=== PATIENT | female | born 1940 | race Caucasian/White ===

== ENCOUNTER 2020-01-20 13:31 | Outpatient (CLI) | payer MEDICARE, SELFPAY ==
[2020-01-20 13:51] LABS: Basophils Absolute Auto 0.1 K/mm3 (0.0-0.1); Basophils Percent Auto 1.4 % (0.2-1.2); Eosinophils Absolute Auto 0.1 K/mm3 (0-0.3); Eosinophils Percent Auto 3.2 % (0-4.4); Hemoglobin 12.6 g/dL (12.0-15.0); Immature Granulocyte Absolute 0.01 K/mm3 (0.00-0.031); Immature Granulocyte Percent A 0.2 % (0-0.5); Lymphocytes Absolute Auto 1.12 K/mm3 (0.9-3.2); Lymphocytes Percent Auto 25.3 % (18.3-44.2); Mean Corpuscular HGB Conc 31.5 g/dl (32-36); Mean Corpuscular Hemoglobin 30.7 pg (26-34); Mean Corpuscular Volume 97.3 fl (80-100); Mean Platelet Volume 9.2 fl (7.4-10.4); Monocytes Absolute Auto 0.4 K/mm3 (0.1-0.6); Monocytes Percent Auto 8.4 % (2.6-8.5); Neutrophils Absolute Auto 2.7 K/mm3 (1.3-6.7); Neutrophils Percent Auto 61.5 % (45.5-73.1); Platelet Count Result 187 k/mm3 (150-375); Red Blood Count 4.11 M/mm3 (4.2-5.4); Red Cell Distribution Width 12.2 % (11.5-14.5); White Blood Count 4.4 K/mm3 (4.5-10.0)
[2020-01-20 16:53] LABS: Alanine Aminotransferase 9 U/L (4-35); Albumin Level 4.1 g/dL (3.5-5.1); Alkaline Phosphatase 70 U/L (38-126); Aspartate Amino Transferase 24 U/L (14-36); Bilirubin,Total 0.3 mg/dL (0.2-1.3); Blood Urea Nitrogen 15 mg/dL (7-17); Calcium 9.3 mg/dL (8.4-10.2); Carbon Dioxide 30 mmol/L (22-30); Chloride 99 mmol/L (98-107); Estimated Glomerular Filt Rate 60; Glucose 124 mg/dL (65-105); Potassium 4.2 mmol/L (3.4-5.0); Sodium 140 mmol/L (137-145)
[2020-01-24 05:40] LABS: CA 27.29 42 U/mL (<38)
== END 2020-01-20 13:32 | disposition home or self-care (01) ==
LOC: ANHLAB 13:33
PROVIDERS: PCP Family Medicine; Visit Provider Internal Medicine Hematology & Oncology
DX: C50.412 Malignant neoplasm of upper-outer quadrant of left female breast (principal); Z17.0 Estrogen receptor positive status [ER+]
CPT/HCPCS: 36415; 80053; 85025; 86300

== ENCOUNTER 2020-02-03 14:14 | Outpatient (CLI) | payer MEDICARE, SELFPAY ==
--- NOTE | ~2020-02-03 | MM_ITS ---
EXAMINATION: MM screening piper BI w cathy HISTORY: Screening mammogram TECHNIQUE: Craniocaudal and mediolateral oblique 3-D tomosynthesis images were obtained and synthetic 2-D images were generated. CAD analysis was submitted and interpreted. COMPARISON: Comparison to multiple prior studies sequentially, with oldest reviewed study dated 12/2014. BREAST PARENCHYMAL COMPOSITION: The breasts are heterogeneously dense, which may obscure small masses . FINDINGS: There is no evidence of suspicious mass, calcification, or architectural distortion to sugg est malignancy in either breast. There has been no suspicious interval change. IMPRESSION: 1. No mammographic evidence of malignancy. 2. Recommend routine screening mammography in one year. BI-RADS Category 1: Negative Reviewed, dictated and finalized at location A.
== END 2020-02-03 14:15 | disposition home or self-care (01) ==
PROVIDERS: PCP Family Medicine; Visit Provider Internal Medicine Hematology & Oncology
DX: Z12.31 Encounter for screening mammogram for malignant neoplasm of breast (principal)
CPT/HCPCS: 77063; 77067

== ENCOUNTER 2020-07-23 13:41 | Outpatient (CLI) | payer MEDICARE, SELFPAY ==
[2020-07-23 13:56] LABS: Basophils Absolute Auto 0.1 K/mm3 (0.0-0.1); Basophils Percent Auto 1.2 % (0.2-1.2); Eosinophils Absolute Auto 0.2 K/mm3 (0-0.3); Hematocrit 36.8 % (37.0-47.0); Immature Granulocyte Absolute 0.02 K/mm3 (0.00-0.031); Immature Granulocyte Percent A 0.4 % (0-0.5); Lymphocytes Absolute Auto 1.15 K/mm3 (0.9-3.2); Mean Corpuscular HGB Conc 32.6 g/dl (32-36); Mean Corpuscular Hemoglobin 30.8 pg (26-34); Mean Corpuscular Volume 94.4 fl (80-100); Mean Platelet Volume 8.7 fl (7.4-10.4); Monocytes Absolute Auto 0.4 K/mm3 (0.1-0.6); Monocytes Percent Auto 8.2 % (2.6-8.5); Neutrophils Absolute Auto 3.2 K/mm3 (1.3-6.7); Neutrophils Percent Auto 63.2 % (45.5-73.1); Platelet Count Result 188 k/mm3 (150-375); Red Cell Distribution Width 12.6 % (11.5-14.5)
[2020-07-23 16:51] LABS: Alanine Aminotransferase 8 U/L (4-35); Albumin Level 4.1 g/dL (3.5-5.1); Alkaline Phosphatase 64 U/L (38-126); Anion Gap 5 mmol/L (8-16); Aspartate Amino Transferase 23 U/L (14-36); Bilirubin,Total 0.3 mg/dL (0.2-1.3); Blood Urea Nitrogen 12 mg/dL (7-17); Calcium 9.1 mg/dL (8.4-10.2); Carbon Dioxide 30 mmol/L (22-30); Chloride 102 mmol/L (98-107); Estimated Glomerular Filt Rate 60; Glucose 118 mg/dL (65-105); Potassium 4.1 mmol/L (3.4-5.0); Sodium 137 mmol/L (137-145)
[2020-07-30 05:34] LABS: CA 27.29 38 U/mL (<38)
== END 2020-07-23 13:42 | disposition home or self-care (01) ==
PROVIDERS: PCP Family Medicine; Visit Provider Internal Medicine Hematology & Oncology
DX: C50.412 Malignant neoplasm of upper-outer quadrant of left female breast (principal); Z17.0 Estrogen receptor positive status [ER+]
CPT/HCPCS: 36415; 80053; 85025; 86300

== ENCOUNTER → 2021-09-06 13:31 | Outpatient (CLI) | payer MEDICARE, SELFPAY ==
--- NOTE | ~2021-09-06 | DEXA_ITS ---
Bone Density Report Name: Sandrine Yu Age: 81 Sex: Female Ethnicity: White Date of : 1940 Indication: osteopenia; height loss; postmenopausal Referring Provider: ROSY, OSWALDO Lewis Study: Bone densitometry was performed. Exam Date: September 06, 2021 Accession number: [id number] Bone Density: Region BMD T-score Z-score Classification AP Spine (L1-L4) 0.869 -1.6 1.2 Osteopenia Femoral Neck (Left) 0.550 -2.7 -0.3 Osteoporosis Total Hip (Left) 0.647 -2.4 -0.2 Osteopenia Femoral Neck (Right) 0.559 -2.6 -0.2 Osteoporosis Total Hip (Right) 0.681 -2.1 0.1 Osteopenia Total Hip Mean 0.664 -2.3 -0.1 Osteopenia World Health Organization criteria for BMD impression classify patients as: Normal (T-score at or above -1.0), Osteopenia (T-score between -1.0 and -2.5), or Osteoporosis (T-score at or below -2.5). 10-year Fracture Risk: FRAX not reported because: Some T-score for Spine Total or Hip Total or Femoral Neck at or below -2.5 Previous Exams: Region Exam Age BMD T-score BMD Change BMD Change Date g/cm2 vs Baseline vs Previous AP Spine(L1-L4) 09/06/2021 81 0.869 -1.6 -0.019 -0.038* 09/21/2015 75 0.907 -1.3 0.019 0.019 05/24/2013 72 0.888 -1.4 Total Hip(Left) 09/06/2021 81 0.647 -2.4 -0.043* -0.062* 09/21/2015 75 0.709 -1.9 0.019 0.019 05/24/2013 72 0.690 -2.1 Total Hip(Right) 09/06/2021 81 0.681 -2.1 -0.018 -0.056* 09/21/2015 75 0.736 -1.7 0.038* 0.038* 05/24/2013 72 0.699 -2.0 *Denotes significance at 95% confidence level, LSC for AP Spine = 0.022 g/cm2, LSC for Total Hip = 0.027 g/cm2 Clinical Information Provided by Patient: Has used the following medications: Vitamin D, Calcium Patient maximum height was 62 Menopause Age: 48 Does not regularly consume dairy products Drinks caffeinated beverages Onset of menses at age 10 Number of children 1 Impression: The patient has osteoporosis, based on the Left Femoral Neck T-score. The BMD for the AP Spine(L1-L4) decreased, changing by -0.038 since the last DXA exam. The BMD for the Total Hip(Left) decreased, changing by -0.062 since the last DXA exam. The BMD for the Total Hip(Right) decreased, changing by -0.056 since the last DXA exam. Discussion: INCREASED RISK OF FRACTURE. BONE DENSITY IS UNDESIRABLY LOW AT ONE OR MORE SKELETAL SITES, CONSISTENT WITH POSTMEN
--- NOTE | ~2021-09-06 | XR_ITS ---
EXAMINATION: XR abdomen obstructive series DATE: 09/06/2021 14:13 INDICATION: Abdominal pain TECHNIQUE: Upright and supine views of the abdomen were obtained. COMPARISON: None. FINDINGS: There is no free intraperitoneal gas or evidence of bowel obstruction. The bowel gas patter n is normal. The visualized lung bases are clear. There is moderate osteoarthritis of the hips and mo derate spondylosis of the lumbar spine. IMPRESSION: 1. Nonobstructive bowel gas pattern. Reviewed, dictated and finalized at location A.
== END ==
PROVIDERS: PCP Family Medicine; Visit Provider Family Medicine
DX: R10.9 Unspecified abdominal pain (principal); M85.89 Other specified disorders of bone density and structure, multiple sites; M81.0 Age-related osteoporosis without current pathological fracture
CPT/HCPCS: 74019; 77080

== ENCOUNTER 2023-09-24 18:22 | Inpatient (IN) | payer MEDICARE, SELFPAY ==
[2023-09-24] VITALS (8 sets, daily range): BP systolic 104–154; BP diastolic 48–67; PULSE 76–90; RESP 11–20; TEMP 36.2–36.3; O2SAT 97–100; BMI 23.2
--- NOTE | ~2023-09-24 | CT_ITS ---
EXAMINATION: CT brain wo con DATE: 09/24/2023 20:56 INDICATION: Weakness TECHNIQUE: Computed tomography (CT) of the head was performed without intravenous contrast. Sagittal and coronal reconstructions were performed. The mA was adjusted according to patient size. Iterative reconstruction technique was employed. The dose-length product was 605.33 mGy-cm. COMPARISON: None FINDINGS: No acute intracranial hemorrhage, acute infarction or abnormal extra axial fluid collection. There is mild scattered white matter hypoattenuation consistent with chronic small vessel ischemic di sease. Symmetric prominence of the sulci consistent with mild age-appropriate diffuse cerebral volume loss. Ventricles are normal and symmetric. No mass/mass effect. Changes of bilateral intraocular spencer s replacement. The orbits and mastoid air cells are normal. Mediastinal or sepsis mucosal thickening at the dependent sphenoid sinus. Likely mucous retention cyst at the left maxillary sinus.. IMPRESSION: 1. No acute intracranial process. 2. Age-related changes including mild diffuse volume loss and mild scattered white matter hypoattenua tion consistent with chronic small vessel ischemic disease. Reviewed, dictated and finalized at location A. AYS CONTROL SPECIALIST IMPRESSION: 1. No acute intracranial process. 2. Age-related changes including mild diffuse volume loss and mild scattered wh ite matter hypoattenuation consistent with chronic small vessel ischemic diseas e.
--- NOTE | ~2023-09-24 | XR_ITS ---
EXAMINATION: XR chest 2V DATE: 09/24/2023 19:19 INDICATION: Chest pain TECHNIQUE: PA and lateral views of the chest were obtained. COMPARISON: None FINDINGS: A couple calcified nodules at the left lung base and calcified left hilar lymph nodes consistent with old granulomatous disease. No other airspace opacities, pulmonary edema, pleural effusion or pneumot horax. The cardiomediastinal silhouette is normal. Moderate spondylosis in the visualized upper lumba r spine. IMPRESSION: 1. No acute cardiopulmonary disease. Reviewed, dictated and finalized at location A. [employer]OR OF [employer]ODUCT MARKETING
--- NOTE | 2023-09-24 18:25 | ECG_ITS ---
Measurements Intervals [place] Rate: 82 P: 72 TX: 165 QRS: 59 QRSD: 86 T: 75 QT: 354 QTc: 415 Interpretive Statements SINUS RHYTHM NORMAL ECG NO PREVIOUS ECG AVAILABLE FOR COMPARISON Electronically Signed On 09-25-2023 6:40:37 [employer]UTTLEC[employer] FEATHER TRIMMER by Ish Coombs D.O.
[2023-09-24 18:46] LABS: Basophils Absolute Auto 0.1 K/mm3 (0.0-0.1); Basophils Percent Auto 0.9 % (0.2-1.2); Eosinophils Percent Auto 0.4 % (0-4.4); Hematocrit 40.9 % (37.0-47.0); Immature Granulocyte Absolute 0.02 K/mm3 (0.00-0.031); Immature Granulocyte Percent A 0.3 % (0-0.5); Lymphocytes Absolute Auto 0.78 K/mm3 (0.9-3.2); Lymphocytes Percent Auto 11.1 % (18.3-44.2); Mean Corpuscular HGB Conc 31.8 g/dl (32-36); Mean Corpuscular Volume 97.4 fl (80-100); Mean Platelet Volume 9.1 fl (7.4-10.4); Monocytes Absolute Auto 0.3 K/mm3 (0.1-0.6); Neutrophils Absolute Auto 5.9 K/mm3 (1.3-6.7); Neutrophils Percent Auto 83.3 % (45.5-73.1); Platelet Count Result 194 k/mm3 (150-375); Red Cell Distribution Width 12.3 % (11.5-14.5)
[2023-09-24 18:59] LABS: INR 0.9; Prothrombin Time 12.6 Seconds (11.1-14.7)
[2023-09-24 19:00] LABS: Partial Thromboplastin Time 31.5 SECONDS (22.3-36.8)
[2023-09-24 19:01] LABS: Alanine Aminotransferase 14 U/L (6-35); Albumin Level 4.5 g/dL (3.5-5.1); Alkaline Phosphatase 70 U/L (38-126); Anion Gap 6 mmol/L (8-16); Aspartate Amino Transferase 35 U/L (14-36); Bilirubin,Total 0.6 mg/dL (0.2-1.3); Blood Urea Nitrogen 12 mg/dL (7-17); Calcium 9.7 mg/dL (8.4-10.2); Carbon Dioxide 30 mmol/L (22-30); Chloride 103 mmol/L (98-107); Estimated CRCL calculation 30 ml/min; Estimated Glomerular Filt Rate 60; Glucose 174 mg/dL (65-110); Lipase 285 U/L (23-300); Potassium 3.6 mmol/L (3.4-5.0); Sodium 139 mmol/L (137-145)
[2023-09-24 19:16] LABS: Troponin I 0.711 ng/mL (0.000-0.034)
[2023-09-24] MEDS: ASPIRIN 81 MG CHEWABLE TABLET 324 MG PO (19:39)
--- NOTE | 2023-09-24 20:43 | PM.IMHP ---
H&P: HPI History of Present Illness Date/Time: 09/24/23 20:43 Chief Complaint: Epigastric discomfort Narrative: This is an 83-year-old female with past medical history significant for hypothyroidism. Patient presents to the emergency room after having episode of epigastric discomfort accompanied by lightheadedness, dizziness, arm tingling and numbness, that lasted for several minutes states that had similar episode 2 days prior but lasted for very little. Patient also had nausea and vomiting with it. Patient took antacid to alleviate the pain with no relieve. At the time of my visit patient denied any pain. Has been her usual state of health prior to this. in emergency room preliminary workup was significant for troponins x3 0.7/4.8/8.0 EXAMINATION: XR chest 2V DATE: 09/24/2023 19:19 INDICATION: Chest pain TECHNIQUE: PA and lateral views of the chest were obtained. COMPARISON: None FINDINGS: A couple calcified nodules at the left lung base and calcified left hilar lymph nodes consistent with old granulomatous disease. No other airspace opacities, pulmonary edema, pleural effusion or pneumothorax. The cardiomediastinal silhouette is normal. Moderate spondylosis in the visualized upper lumbar spine. IMPRESSION: 1. No acute cardiopulmonary disease. EXAMINATION: CT brain wo con DATE: 09/24/2023 20:56 INDICATION: Weakness TECHNIQUE: Computed tomography (CT) of the head was performed without intravenous contrast. Sagittal and coronal reconstructions were performed. The mA was adjusted according to patient size. Iterative reconstruction technique was employed. The dose-length product was 605.33 mGy-cm. COMPARISON: None FINDINGS: No acute intracranial hemorrhage, acute infarction or abnormal extra axial fluid collection. There is mild scattered white matter hypoattenuation consistent with chronic small vessel ischemic disease. Symmetric prominence of the sulci consistent with mild age-appropriate diffuse cerebral volume loss. Ventricles are normal and symmetric. No mass/mass effect. Changes of bilateral intraocular lens replacement. The orbits and mastoid air cells are normal. Mediastinal or sepsis mucosal thickening at the dependent sphenoid sinus. Likely mucous retention cyst at the left maxillary sinus.. IMPRESSION: 1. No acute intracranial process. 2. Age-related changes including mild diffuse volume loss and mild scattered white matter hypoattenuation consistent with chronic small vessel ischemic disease. Review of Systems Review of Systems: Epigastric discomfort arm numbness tingling nausea vomiting Constitutional: Constitutional: Denies chills, Denies fatigue, Denies fever(s), Denies malaise, Denies night sweats and Denies weakness Eyes: Eyes: Denies change in vision ENT: Denies dysphagia, Reports dizziness and Denies odynophagia Cardiovascular: Cardiovascular: Reports chest pain, Reports lightheadedness, Denies radiating jaw, neck or arm pain and Denies palpitations Respiratory: Respiratory: Denies cough and Denies excessive phlegm production Gastrointestinal: Gastrointestinal: Denies abdominal pain, Denies constipation, Denies dyspepsia, Denies heartburn, Reports nausea and Reports vomiting Genitourinary: Genitourinary: Denies dysuria and Denies flank pain Musculoskeletal: Musculoskeletal: Denies arthralgias Integumentary/Breasts: Skin/Breast: Denies rash Neurologic: Denies focal weakness and Denies Sensory deficit (Neuro) Psychiatric: Psychiatric: Reports no additional psychiatric complaints and Reports as per HPI Endocrine: Endocrine: Denies cold intolerance, Denies flushing, Denies heat intolerance, Denies polyphagia, Denies polydipsia and Denies palpitations Hematologic/Lymphatic: Hematologic/Lymphatic: Reports no additional hematologic/lymphatic complaints and Reports as per HPI Allergic/Immunologic: Allergic/Immunologic: Reports no additional allergic/immunologic complaints and Rep
[2023-09-24] MEDS: HEPARIN SODIUM 5,000 UNITS/ML VIAL 3500 UNITS IV PUSH (21:06)
[2023-09-24] MEDS: HEPARIN SOD/D5W 100 UNITS/ML 25,000 UNITS/250 ML BAG 7 UNITS IV CONT (21:08)
--- NOTE | 2023-09-24 21:40 | ED.CHESTPAIN ---
HPI - Chest Pain General Chief Complaint: Chest Pain Stated Complaint: chest pain Time Seen by Provider: 09/24/23 19:47 History of Present Illness HPI narrative: Patient presents to the emergency department with her daughter with an episode of resolved right-sided chest discomfort. Pain radiated into her right arm. She also had tingling of her right arm. She was belching. Patient had 2 other episodes of belching this week. She did not have chest discomfort at that time. Tonight she felt lightheaded prior to the chest pain. Unsure if she had right arm weakness. Denies lower extremity weakness. Patient does not have any cardiac history Related Data Allergies Allergy/AdvReac Type Severity Reaction Status Date / Time No Known Allergies Allergy Verified 09/24/23 19:36 Review of Systems Review of Systems: Review of systems negative except what is documented in the HPI Exam Narrative: GENERAL: Well-appearing, well-nourished, and in no acute distress. HEAD: Normocephalic, atraumatic. EYES: PERRLA and EOMI. ENT: Nares clear, no rhinorrhea or epistaxis. Mucous membranes moist. NECK: Supple. CHEST: Clear to auscultation. No respiratory distress. HEART: Regular rate and rhythm. ABDOMEN: Soft, nontender, nondistended. EXTREMITIES: Normal range of motion. No edema. SKIN: Warm, dry, no rash. NEURO: No focal deficits. Alert and oriented x3. PSYCH: Normal mood and affect. Course Course Emergency Course: EKG ordered and evaluated by myself patient. Slight ST depression in the inferior leads. Patient's troponin was 0.7 initially. She is currently symptom-free. She had lightheadedness and right arm tingling with some weakness so head CT ordered. Discussed patient's presentation and test results with hospitalist. Patient is admitted. Also consulted cardiology. Heparin drip ordered. CBC and CMP ordered and grossly unremarkable. Head CT ordered and results reviewed. No signs of acute ischemia. Vital Signs Vital signs: Vital Signs Temperature 36.2 C L 09/24/23 18:45 Pulse Rate 90 09/24/23 18:45 Respiratory Rate 20 09/24/23 18:45 Blood Pressure 104/67 09/24/23 18:45 Pulse Oximetry 100 09/24/23 18:45 Oxygen Delivery Room Air 09/24/23 18:45 Temperature 36.2 C L 09/24/23 18:45 Pulse Rate 77 09/24/23 19:42 Respiratory Rate 15 09/24/23 19:35 Blood Pressure 142/50 H 09/24/23 19:35 Pulse Oximetry 99 09/24/23 19:40 Oxygen Delivery Room Air 09/24/23 19:40 MDM - Chest Pain MDM Narrative Medical decision making narrative: Telemetry ordered due to chest pain to evaluate for dysrhythmias. Evaluated by myself. Rhythm NS Rate 70 Due to high probability of clinically significant lift threatening deterioration, the patient required my highest level of preparedness to intervene emergently. Critical care time documented not including procedures needed Pt admitted to IMU for NSTEMI Lab Data 09/24/23 18:39 09/24/23 18:39 Labs: Lab Results 09/24/23 Range/Units 18:39 WBC 7.0 (4.5-10.0) K/mm3 RBC 4.20 (4.2-5.4) M/mm3 Hgb 13.0 (12.0-15.0) g/dL Hct 40.9 (37.0-47.0) % MCV 97.4 (80-100) fl MCH 31.0 (26-34) pg MCHC 31.8 L (32-36) g/dl RDW 12.3 (11.5-14.5) % Plt Count 194 (150-375) k/mm3 MPV 9.1 (7.4-10.4) fl Immature Gran % (Auto) 0.3 (0-0.5) % Neut % (Auto) 83.3 H (45.5-73.1) % Lymph % (Auto) 11.1 L (18.3-44.2) % Carroll % (Auto) 4.0 (2.6-8.5) % Eos % (Auto) 0.4 (0-4.4) % Baso % (Auto) 0.9 (0.2-1.2) % Lymph # (Auto) 0.78 L (0.9-3.2) K/mm3 Carroll # (Auto) 0.3 (0.1-0.6) K/mm3 Eos # (Auto) 0.0 (0-0.3) K/mm3 Baso # (Auto) 0.1 (0.0-0.1) K/mm3 Abs Immat Gran (auto) 0.02 (0.00-0.031) K/mm3 Absolute Neuts (auto) 5.9 (1.3-6.7) K/mm3 Absolute Nucleated RBC 0.0 (0.0-0.012) K/mm3 Nucleated RBC % 0.0 (0.0-0.2) % PT 12.6 (11.1-14.7) Seconds INR 0.9 APTT 31.5 (22.3-36.8) SECONDS S
--- NOTE | 2023-09-24 23:14 | ADMGEN ---
This patient, Sandrine Yu, was admitted to IMU Room 214-01. Patient/family oriented to hospital policies and general routines including ID bracelet, bed and alarms, visiting hours, pain management, procedures, bathroom and other care routines, personal items, smoking policy, room service/diet, and visiting hours. Information on how to activate the Rapid Response Team has been discussed. Patient/Family are encouraged to report perceived risks to care and to ask questions if they do not understand what they are told or what they should do.
[2023-09-25] VITALS (21 sets, daily range): BP systolic 119–153; BP diastolic 52–94; PULSE 61–116; RESP 13–156; TEMP 36.4–37.1; O2SAT 95–100
--- NOTE | 2023-09-25 | ECHO_ITS ---
Patient Info Name: Sandrine Yu Age: 83 years : 1940 Gender: Female Ht: 61 in Wt: 122 lbs BSA: 1.55 m2 HR: 68 bpm BP: 129 / 53 mmHg Heart Rhythm: Sinus Rhythm Technical Quality: Fair Exam Date: 09/25/2023 9:55 AM Exam Location: Echo Lab Patient Status: Inpatient Admit Date: 09/25/2023 Staff Ordering Physician: Alen Corado MD Circular Gang Saw Operator: Teagan Betts RDCS Attending Provider: Alen Corado MD Referring Physician: Mickie IBANEZ; Exam Type: CA echo doppler color flow Study Info Indications - ELEVATED TROP Complete two-dimensional, color flow and Doppler transthoracic echocardiogram is performed. Summary 1. Complete two-dimensional, color flow and Doppler transthoracic echocardiogram is performed. 2. Left ventricular systolic function is normal, estimated at 65-70%. There is hypokinesis of the apical septal, mid anteroseptal, and mid inferoseptal coe. 3. Left ventricular chamber dimension is normal. 4. There is mildly increased left ventricular wall thickness. 5. The left ventricular diastolic function is abnormal. 6. There is no aortic valve stenosis. 7. There is mild mitral valve regurgitation. 8. There is mild tricuspid valve regurgitation. 9. Mild pulmonary hypertension, estimated pulmonary arterial systolic pressure is 35 mmHg. Left Ventricle Left ventricular systolic function is normal, estimated at 65-70%. There is hypokinesis of the apical septal, mid anteroseptal, and mid inferoseptal coe. Left ventricular chamber dimension is normal. There is mildly increased left ventricular wall thickness. The left ventricular diastolic function is abnormal. Right Ventricle Right ventricular chamber dimension is normal. Right ventricular systolic function is normal. Left Atria Left atrial chamber dimension is normal. Right Atria Right atrial chamber dimension is normal. Aortic Valve The aortic valve is trileaflet. There is mild aortic valve sclerosis. There is no aortic valve stenosis. There is trace aortic valve regurgitation. There is mild aortic valve calcification. Pulmonic Valve The pulmonic valve is not well visualized. There is trace pulmonic regurgitation. Mitral Valve The mitral valve has normal leaflets. There is mild mitral valve regurgitation. The mitral valve annulus is mildly calcified. Tricuspid Valve The tricuspid valve leaflets are normal. There is mild tricuspid valve regurgitation. Mild pulmonary hypertension, estimated pulmonary arterial systolic pressure is 35 mmHg. Pericardium/Pleural The pericardium appears normal. There is trivial pericardial effusion. Inferior Vena Cava Normal inferior vena cava with >50% collapse upon inspiration consistent with normal right atrial pressure, 5 mmHg. Aorta The aortic root size at the sinus of Valsalva is normal. There is mild aortic atherosclerosis. Left Ventricular Outflow Tract Name Value Normal LVOT 2D LVOT Diameter 2.0 cm LVOT Doppler LVOT Peak Gradient 5 mmHg LVOT Mean Gradient 3 mmHg LVOT VTI 23 cm LVOT VTI/AV VTI Ratio 0.8 LVOT Stroke Volum
[2023-09-25] MEDS: LEVOTHYROXINE SODIUM 25 MCG TABLET PO (06:03)
[2023-09-25 07:46] LABS: Cholesterol 184 mg/dL (0-200); HDL Direct 57 mg/dL; Triglycerides 46 mg/dL (<150)
--- NOTE | 2023-09-25 07:55 | PM.CNCAR ---
Assessment and Plan Assessment and plan (1) Acute non-ST elevation myocardial infarction (NSTEMI): Code(s): I21.4 - Non-ST elevation (NSTEMI) myocardial infarction Status: Acute Assessment and Plan: Troponin trending up at 8.0 now. On aspirin and heparin drip. Start Atorvastatin 80 mg daily. Obtain echo. Discuss risks/benefits/alternative to LHC and she is agreeable to it. Will consult [facility] for it. Keep NPO. (2) Epigastric abdominal pain: Code(s): R10.13 - Epigastric pain Status: Acute Assessment and Plan: Atypical symptoms of NSTEMI. History of Present Illness History of Present Illness Consult date/time: 09/25/23 07:55 Reason For Visit: nstemi Narrative: 83 yr old woman presents to ER with epigastric abdominal pain. She has no cardiac history. States 2 days ago she had epigastric pain and then it went away. Pain returned yesterday associated with right arm pain and lightheadedness. She would belch and did provide some relief with epigastric pain. She normally lives at home and able to walk up to 1 block with a cane and does get off balance at times. Denies sob, orthopnea, PND, edema, palpitations. Review of Systems Review of Systems: All systems reviewed & are unremarkable except as noted in HPI and below Constitutional: Constitutional: Reports as per HPI, Denies chills and Denies fever(s) Cardiovascular: Cardiovascular: Reports as per HPI, Denies chest pain, Denies irregular heart rhythm, Denies leg edema and Reports lightheadedness Respiratory: Respiratory: Reports as per HPI and Denies dyspnea Gastrointestinal: Gastrointestinal: Reports as per HPI, Reports abdominal pain and Reports belching Genitourinary: Genitourinary: Reports as per HPI and Denies dysuria Musculoskeletal: Musculoskeletal: Reports as per HPI Neurologic: Reports as per HPI, Reports dizziness and Denies syncope [facility] Family History Family History (Updated 09/24/23 @ 23:43 by Tatiana Mcghee RN) Father Lung cancer Mother Cerebrovascular accident Sibling Coronary artery disease Social History Social History Smoking status: Never smoker Second hand tobacco smoke exposure: Yes Alcohol intake: never Substance use: never Lack of Transportation: No Lack of Food: Never True Current Housing: I Have Housing Concerned About Future Housing: No Difficulty Paying Gas/Electric Bills: No Difficulty Paying for Meds: No Currently Unemployed: No Education: High School Diploma/GED Difficulty w/ Childcare or Family Care: No Spiritual care concerns: No Meds Home Medications and Allergies Home Medications Medication Instructions Recorded Confirmed Type levothyroxine 25 mcg tablet 25 mcg PO QAM 09/24/23 09/24/23 History gabapentin 100 mg PO BID Neuropathy 09/25/23 09/25/23 History Allergies Allergy/AdvReac Type Severity Reaction Status Date / Time No Known Allergies Allergy Verified 09/24/23 19:36 Vital Signs Vital Signs - 24 hr 09/24/23 18:45 09/24/23 19:35 09/24/23 19:40 Temperature 97.2 F L Pulse Rate 90 77 Respiratory Rate 20 15 Blood Pressure 104/67 142/50 H Pulse Oximetry 100 99 99 Oxygen Delivery Room Air Room Air 09/24/23 19:42 09/24/23 22:20 09/24/23 19:31 Temperature Pulse Rate 77 76 78 Respiratory Rate 17 11 L Blood Pressure 122/48 L 142/50 H Pulse Oximetry 98 98 Oxygen Delivery 09/24/23 19:46 09/24/23 23:21 09/25/23 00:00 Temperature 97.3 F L Pulse Rate 76 81 78 Respiratory Rate 14 16 Blood Pressure 134/67 154/58 H Pulse Oximetry 97 98 Oxygen Delivery 09/25/23 00:00 09/25/23 02:00 09/25/23 04:00 Temperature Pulse Rate 71 67 Respiratory Rate Blood Pressure Pulse Oximetry 98 Oxygen Delivery Room Air 09/25/23 04:00 09/25/23 04:00 09/25/23 06:00 Temperature 97.7 F Pulse Rate 68 64 Respiratory Rate 16 Blood Pressure 129/53 L Pulse Oximetry 98 100 Oxygen Delivery
[2023-09-25 07:57] LABS: LDL Cholesterol Direct 94 mg/dL
--- NOTE | 2023-09-25 08:12 | ECG_ITS ---
Measurements Intervals [place] Rate: 72 P: LA: 0 QRS: 58 QRSD: 74 T: 89 QT: 394 QTc: 431 Interpretive Statements SINUS OR ECTOPIC ATRIAL RHYTHM CANNOT RULE OUT SEPTAL INFARCT, AGE INDETERMINATE T WAVE ABNORMALITY IN ANTERIOR LEADS- CONSIDER ISCHEMIA ABNORMAL ECG COMPARED TO ECG 09/24/2023 18:35:24 MYOCARDIAL INFARCT FINDING NOW PRESENT T WAVE ABNORMALITY NOW PRESENT Electronically Signed On 09-25-2023 10:06:53 SUPERVISOR KENNEL by Ish Coombs D.O.
--- NOTE | 2023-09-25 08:22 | WPDMODSED ---
Moderate Sedation Note-Pt Data Patient Data Diagnosis: Non ST-elevation PA Present Complaint: Epigastric, low substernal pain radiating to right arm Procedure to be performed/Plan: Left heart catheterization Allergies Allergy/AdvReac Type Severity Reaction Status Date / Time No Known Allergies Allergy Verified 09/24/23 19:36 Home Medications Medication Instructions Recorded Confirmed Type levothyroxine 25 mcg tablet 25 mcg PO QAM 09/24/23 09/24/23 History gabapentin 100 mg PO BID Neuropathy 09/25/23 09/25/23 History Current Medications: Active Medications Aspirin (Aspirin 81 Mg Enteric Tablet) 81 mg PO QAM [facility] Atorvastatin Calcium (Atorvastatin 40 Mg Tablet) 80 mg PO DAILY RAJ Gabapentin (Gabapentin 100 Mg Capsule) 100 mg PO BID [facility] Heparin Sodium (Porcine) (Heparin Sodium 5,000 Units/Ml Vial) 4,000 units IV PUSH PRN PRN PRN Reason: aPTT less than 55 seconds Heparin Sodium (Porcine) (Heparin Sodium 5,000 Units/Ml Vial) 2,000 units IV PUSH PRN PRN PRN Reason: aPTT 55 - 70 seconds Heparin Sodium/Dextrose (Heparin Sodium/D5w 100 Units/Ml) 25,000 units in 250 mls @ 5 mls/hr IV CONT .Q24H [facility]; Protocol Last Infusion: 09/25/23 05:09 Dose: 500 units/hr, 5 mls/hr Levothyroxine Sodium (Levothyroxine Sodium 25 Mcg Tablet) 25 mcg PO DAILY@0630 [facility] Last Admin: 09/25/23 06:03 Dose: 25 mcg Perflutren Lipid Microsphere (Perflutren Lipid Microspheres 1.5 Ml Vial Diluted To 10 Ml Total Volume) 0 ml IV PUSH ONCE PRN; Protocol PRN Reason: adequate visualization Stop: 09/28/23 03:07 Sedation/Anesthesia: No previous sedation/anesthesia problems (including family history). [facility] Family History Family History (Updated 09/24/23 @ 23:43 by Tatiana Mcghee RN) Father Lung cancer Mother Cerebrovascular accident Sibling Coronary artery disease Social History Social History Smoking status: Never smoker Second hand tobacco smoke exposure: Yes Alcohol intake: never Substance use: never Lack of Transportation: No Lack of Food: Never True Current Housing: I Have Housing Concerned About Future Housing: No Difficulty Paying Gas/Electric Bills: No Difficulty Paying for Meds: No Currently Unemployed: No Education: High School Diploma/GED Difficulty w/ Childcare or Family Care: No Spiritual care concerns: No Mod Sed Physical Exam Physical Exam Pre Procedural Exam: Normal: Appearance, Neck, Throat, Airway, Lungs, Heart Size, Heart Rate, Heart Rhythm, Neuro Exam and Extremities Hours since solid foods: 12 Hours since liquid intake: 12 Mallampati Classification: class II Internal Medicine - PN: Obj Da Vital Signs Vital Signs: Vital Signs - 24 hr 09/24/23 18:45 09/24/23 19:35 09/24/23 19:40 Temperature 36.2 C L Pulse Rate 90 77 Respiratory Rate 20 15 Blood Pressure 104/67 142/50 H Pulse Oximetry 100 99 99 Oxygen Delivery Room Air Room Air 09/24/23 19:42 09/24/23 22:20 09/24/23 19:31 Temperature Pulse Rate 77 76 78 Respiratory Rate 17 11 L Blood Pressure 122/48 L 142/50 H Pulse Oximetry 98 98 Oxygen Delivery 09/24/23 19:46 09/24/23 23:21 09/25/23 00:00 Temperature 36.3 C L Pulse Rate 76 81 78 Respiratory Rate 14 16 Blood Pressure 134/67 154/58 H Pulse Oximetry 97 98 Oxygen Delivery 09/25/23 00:00 09/25/23 02:00 09/25/23 04:00 Temperature Pulse Rate 71 67 Respiratory Rate Blood Pressure Pulse Oximetry 98 Oxygen Delivery Room Air 09/25/23 04:00 09/25/23 04:00 09/25/23 06:00 Temperature 36.5 C Pulse Rate 68 64 Respiratory Rate 16 Blood Pressure 129/53 L Pulse Oximetry 98 100 Oxygen Delivery Room Air 09/25/23 07:31 Temperature 36.4 C L Pulse Rate 66 Respiratory Rate 17 Blood Pressure 128/52 L Pulse Oximetry 98 Oxygen Delivery Intake/Output Intake/Output: Intake & Output 09/23/23 09/24/23 09/24/23 09/25/23 00:59 00:59 23:59 23:59 Intake Total 100 Output Total 150
[2023-09-25] MEDS: GABAPENTIN 100 MG CAPSULE PO ×2 (09:41→17:25)
[2023-09-25] MEDS: ATORVASTATIN 40 MG TABLET 80 MG PO (09:41)
[2023-09-25] MEDS: ASPIRIN 81 MG ENTERIC TABLET PO (09:41)
--- NOTE | 2023-09-25 10:45 | PC.NURSE ---
Pt to greenskeeper laborer via hospital bed. Heparin drip on standby. IV saline locked.
--- NOTE | 2023-09-25 11:48 | P.PCNCC_ITS ---
Cardiac Cath Procedure Note Date of procedure:: 09/25/23 Performing physician:: Andres Guzmán MD Indication:: acute coronary syndrome / non ST elevation NM Brief clinical history:: this is an 83-year-old lady without previous history of coronary disease who presented yesterday with epigastric and low substernal chest pain radiating to the right arm. Her ECG was benign in appearance but her troponin levels did rise significantly. Following this event and angiogram has been recommended Procedure Procedure performed:: left ventriculography coronary angiography placement of intra-aortic balloon pump Sedation/Medication given:: fentanyl 25 mg Versed 2 mg case start time 11:01 a.m. case end time 11:37 a.m. sedation provided by Randal Zarate RN, trained observer Access site:: right femoral artery Estimated blood loss:: 25 cc Procedure note:: patient was brought to the cardiac catheterization lab in the postabsorptive state the right femoral triangle was prepared and draped in the usual fashion. Anesthesia was provided with 1% lidocaine infiltrated locally. Using the modified Seldinger technique the femoral artery was punctured and a 5 Cameroonian vascular sheath was placed. I then used a 5 Cameroonian angled pigtail catheter to measure left-sided hemodynamics and to inject the left ventriculogram in the CRAIN projection. Following this I used a standard 5 Cameroonian FL4 catheter to engage inject the left coronary artery. Following this a standard 5 Cameroonian JR4 catheter was used to engage and inject the right coronary artery. The cineangiograms were reviewed. I elected to place a intra-aortic balloon pump due to her critical proximal LAD stenosis that is described below. Following this the patient was given 5000 units of heparin and 600 mg of oral clopidogrel. Patient is being transferred to the ICU for management of her balloon pump and consideration for transfer to higher level of care for higher risk revascularization. Findings:: Hemodynamics: Central aortic pressure is 126 over 48 left ventricle 126/0 end-diastolic pressure 12 there is no gradient on pullback across the aortic valve. Left ventricle: The LV is normal size all segments contract appropriately the global ejection fraction I would visually estimate to be 55%. The left main coronary artery is nicely patent and medium in caliber the left anterior descending is a medium caliber vessel which has a long high- grade 99% stenosis starting proximally immediately after a very large diagonal branch takes its origin and extending about 20 mm in length into the LAD. There is PHILLIP 3 flow in the LAD despite this subtotal long tubular stenosis. The circumflex is a moderate caliber artery giving rise to the marginal branches there are mild luminal irregularities in the circumflex the midportion of the vessel has approximately 30% stenosis. The right coronary artery is larger caliber and dominant to the posterior circulation the RCA is free of significant disease. Conclusion:: 1. Right coronary dominant circulation with severe single-vessel coronary disease involving long proximal 99% stenosis in the LAD originating immediately after the origin of are rather large diagonal branch. 2. Preserved left ventricular systolic contractility 3. placement of intra-aortic balloon pump after this procedure to maintain clinical stability while plans are made for transfer of this lady to a higher risk center for revascularization Andres Claros MD [facility]
--- NOTE | 2023-09-25 12:00 | PC.NURSE ---
Addendum entered by Jose M Mistry RN 09/25/23 14:21: Arrived via bed from bottle label inspector with RN x3 at bedside. Right groin site assessed. No s/s of bleeding or hematoma. Right pedal pulse assessed. Original Note: Arrived via bed with bottle label inspector
--- NOTE | 2023-09-25 12:47 | WPDCNINT ---
Assessment and Plan Assessment and plan (1) Acute non-ST elevation myocardial infarction (NSTEMI): Code(s): I21.4 - Non-ST elevation (NSTEMI) myocardial infarction Status: Acute Assessment and Plan: 09/24: Patient presented to the ER with epigastric discomfort, nausea, vomiting, tingling and numbness in the right upper extremity, troponins were elevated, patient was diagnosed with NSTEMI, started on heparin infusion 09/25/2023: Patient was taken to the laborer [facility] patient was found to have severe single-vessel coronary disease involving long proximal 99% stenosis in the LAD originating immediately after the origin of are rather large diagonal branch., preserved left ventricular systolic contractility, patient has an intra-aortic balloon pump to maintain medical stability for transfer to higher [place] for revascularization -continue heparin infusion -continue aspirin, atorvastatin -once patient is accepted and once bed is available at a tertiary care hospital, patient be transferred (2) Hypothyroidism: Code(s): E03.9 - Hypothyroidism, unspecified Status: Acute Assessment and Plan: Continue levothyroxine Plan DVT prophylaxis: Continue heparin infusion Stress ulcer prophylaxis: Not indicated Nutrition: NPO Code Status: Full code Critical Care Time Spent: 46 minutes Due to a high probability of clinically significant, life threatening deterioration, the patient required my highest level of preparedness to intervene emergently and I personally spent this critical care time directly and personally managing the patient. This critical care time included obtaining a history; examining the patient; pulse oximetry; ordering and review of studies; arranging urgent treatment with development of a management plan; evaluation of patient's response to treatment; frequent reassessment; and discussions with other providers. It was exclusive of separately billable procedures and treating other patients and teaching time. Please see Assessment and Plan section and the rest of the note for further information on patient assessment and treatment This dictation may have been done utilizing a voice recognition system. Attempts have been made to correct errors. However, there may be uncorrected grammatical, spelling, and recognitions errors present. Head Of Maintenance Consult Note Consult date: 09/25/23 Reason for consult: NSTEMI status post cardiac catheterization with severe single-vessel coronary disease involving long proximal 99% stenosis in the LAD originating immediately after the origin of are rather large diagonal branch., preserved left ventricular systolic contractility, status post intra-aortic balloon pump to maintain medical stability for transfer to higher [place] for revascularization HPI: Sandrine Yu is a 83 year old female with past medical history of hypothyroidism, neuropathy presented the ED on 09/24/2023 with complains of epigastric pain, lightheadedness, dizziness for 2 days, patient also complained of right arm tingling and numbness. Patient did have nausea and vomiting with her symptoms. She took some antacid to alleviate the pain with no relief. She was diagnosed with NSTEMI due to elevated troponin. Patient was started on heparin infusion, cardiology was consulted and admitted to the intermediate unit. 09/25/2023: Patient was taken to the laborer [facility] patient was found to have severe single-vessel coronary disease involving long proximal 99% stenosis in the LAD originating immediately after the origin of are rather large diagonal branch., preserved left ventricular systolic contractility, status post intra-aortic balloon pump to maintain medical stability for transfer to higher center for revascularization Patient was transferred to the ICU for further management while she is waiting for a transfer to a tertiary hospital for higher level of care. Patient seen and examined the ICU, is awake, alert, pleasant, able to
--- NOTE | 2023-09-25 12:59 | PC.NURSE ---
This patient, Sandrine Yu, was transferred to ICU 5 from [facility] on 09/25/23 at 1200. Personal belongings sent with patient. Report given to Jose M HAJI. Appropriate documentation sent with patient.
[2023-09-25] MEDS: SODIUM CHLORIDE 0.9% IV 1,000 ML 125 ML IV CONT (13:06)
[2023-09-25] MEDS: ACETAMINOPHEN 325 MG TABLET 650 MG PO (13:24)
--- NOTE | 2023-09-25 13:39 | PM.IMPN ---
Progress Note: A&P Assessment and Plan (1) Acute non-ST elevation myocardial infarction (NSTEMI): Code(s): I21.4 - Non-ST elevation (NSTEMI) myocardial infarction Status: Acute Assessment and Plan: Patient was taken to the laborer livestock patient was found to have severe single-vessel coronary disease involving long proximal 99% stenosis in the LAD originating immediately after the origin of are rather large diagonal branch., preserved left ventricular systolic contractility, patient has an intra-aortic balloon pump to maintain medical stability for transfer to higher center for revascularization No complications from the cardiac catheterization -continue heparin infusion per mixer whipped topping recommendation -continue aspirin, atorvastatin -once patient is accepted and once bed is available at a tertiary care hospital, patient be transferred (2) Hypothyroidism: Code(s): E03.9 - Hypothyroidism, unspecified Status: Acute Assessment and Plan: Continue levothyroxine Plan DVT prophylaxis: Continue heparin infusion Stress ulcer prophylaxis: Not indicated Nutrition: NPO Subjective Date/time seen: 09/25/23 13:39 Interval history: Patient underwent cardiac catheterization today, reveals major coronary artery occlusion. Patient denies chest pain, headache, focal weakness, vision change, but has some right groin pain where the needle is inserted Exam Narrative: General: Pleasant elderly female in no acute distress HEENT:? Pupils equal and reactive, sclerae is clear, dry oral mucosa Neck:? Supple Respiratory:? Clear to auscultation bilateral, no wheezing, adequate air entry. Cardiac:? Regular rate and rhythm, S1-S2 was normal, no murmurs appreciated Abdomen:? Soft, nontender, nondistended, hypoactive bowel sounds Extremities:? Palpable pedal pulses, no edema, right groin site no hematoma, Neuro:? Patient is awake, alert, oriented, able to answer all questions and follows simple commands in all extremities Skin:? Warm and dry Psych:? Normal affect and mentation Objective Data Vital Signs Vital Signs: Vital Signs - 24 hr 09/24/23 18:45 09/24/23 19:35 09/24/23 19:40 Temperature 97.2 F L Pulse Rate 90 77 Respiratory Rate 20 15 Blood Pressure 104/67 142/50 H Pulse Oximetry 100 99 99 Oxygen Delivery Room Air Room Air 09/24/23 19:42 09/24/23 22:20 09/24/23 19:31 Temperature Pulse Rate 77 76 78 Respiratory Rate 17 11 L Blood Pressure 122/48 L 142/50 H Pulse Oximetry 98 98 Oxygen Delivery 09/24/23 19:46 09/24/23 23:21 09/25/23 00:00 Temperature 97.3 F L Pulse Rate 76 81 78 Respiratory Rate 14 16 Blood Pressure 134/67 154/58 H Pulse Oximetry 97 98 Oxygen Delivery 09/25/23 00:00 09/25/23 02:00 09/25/23 04:00 Temperature Pulse Rate 71 67 Respiratory Rate Blood Pressure Pulse Oximetry 98 Oxygen Delivery Room Air 09/25/23 04:00 09/25/23 04:00 09/25/23 06:00 Temperature 97.7 F Pulse Rate 68 64 Respiratory Rate 16 Blood Pressure 129/53 L Pulse Oximetry 98 100 Oxygen Delivery Room Air 09/25/23 07:31 09/25/23 08:00 09/25/23 08:00 Temperature 97.5 F L Pulse Rate 66 66 Respiratory Rate 17 Blood Pressure 128/52 L Pulse Oximetry 98 Oxygen Delivery Room Air 09/25/23 10:00 09/25/23 12:01 09/25/23 12:16 Temperature 98.2 F Pulse Rate 70 69 68 Respiratory Rate 19 17 Blood Pressure 152/85 H 152/85 H Pulse Oximetry 96 96 Oxygen Delivery 09/25/23 12:00 09/25/23 12:31 Temperature Pulse Rate 67 Respiratory Rate 15 Blood Pressure 153/94 H Pulse Oximetry 96 96 Oxygen Delivery Room Air Intake/Output Intake/Output: Intake & Output 09/23/23 09/24/23 09/24/23 09/25/23 00:59 00:59 23:59 23:59 Intake Total 100 Output Total 150 Balance -50 Meds/Results Medications: Active Medications Generic Name Dose Route Start Last Admin Trade Name Freq PRN Reason Stop Dose Adm
[2023-09-25] MEDS: HYDROcodone/acetaminophen (*CRX) 5-325 MG TABLET 1 TAB PO ×2 (15:07→18:58)
--- NOTE | 2023-09-25 16:44 | PC.NURSE ---
Dr. Coombs notified of moderate drainage at sheath site. Heparin gtt held so PTT to be drawn.
[2023-09-25 18:07] LABS: Partial Thromboplastin Time > 200.0 SECONDS (22.3-36.8)
--- NOTE | 2023-09-25 18:30 | PC.NURSE ---
Report called to ADITHYA Christine at [facility].
--- NOTE | 2023-09-25 19:19 | PC.NURSE ---
Patient off unit with [facility] team. CVICU at [place] notified of patient departure.
--- NOTE | 2023-09-27 18:16 | PM.TDS ---
Transfer Discharge Sum: Prov Provider Date of admission: 09/25/23 09:35 Primary care physician: Mamie Moralez, Admitting clinician: Alen Corado MD Consults: 09/24/23 Consult to Physician Routine Comment: Consulting Provider: Ish Coombs Reason for consultation: nstemi Has provider been notified: Yes 09/25/23 Consult to Physician Routine Comment: spoke with Angy Flores @[id number] (ER,US) Consulting Provider: Angy Flores box truck driver/MD group to consult: HCG Reason for consultation: [facility] Has provider been notified: Yes DS: Admitting Diagnosis Discharge Date 09/25/23 Admitting Diagnosis (1) Acute non-ST elevation myocardial infarction (NSTEMI): ?Code(s): I21.4 - Non-ST elevation (NSTEMI) myocardial infarction ?Status:?Acute DS: Discharge Diagnosis Discharge Diagnosis (1) Acute non-ST elevation myocardial infarction (NSTEMI): Code(s): I21.4 - Non-ST elevation (NSTEMI) myocardial infarction Status: Acute (2) Hypothyroidism: Code(s): E03.9 - Hypothyroidism, unspecified Status: Acute Transfer Discharge Sum: Med Medications Active and Home Medications: Home Medications levothyroxine 25 mcg tablet 25 mcg PO QAM 09/24/23 [History Confirmed 09/24/23] gabapentin 100 mg PO BID Neuropathy 09/25/23 [History Confirmed 09/25/23] Transfer Discharge Sum: Hosp Hospital Course Hospital course: This is an 83-year-old female with past medical history significant for hypothyroidism.? Patient presents to the emergency room after having episode of epigastric discomfort accompanied by lightheadedness, dizziness, arm tingling and numbness, that lasted for several minutes states that had similar episode 2 days prior but lasted for very little.? Patient also had nausea and vomiting with it.? Patient took antacid to alleviate the pain? with no relieve.? At the time of my visit patient denied any pain.? Has been her usual state of health prior to this. in emergency room preliminary workup was significant for troponins x3? 0.7/4.8/8.0 The following medical issues have been addressed during hospitalization (1) Acute non-ST elevation myocardial infarction (NSTEMI): ?Code(s): I21.4 - Non-ST elevation (NSTEMI) myocardial infarction ?Status:?Acute ?Assessment and Plan: ?Patient was taken to the laborer patient was found to have severe single-vessel coronary disease involving long proximal 99% stenosis in the LAD originating immediately after the origin of are rather large diagonal branch., preserved left ventricular systolic contractility, patient has an intra-aortic balloon pump to maintain medical stability for transfer to higher center for revascularization No complications from the cardiac catheterization -continue heparin infusion per director of radio services recommendation -continue aspirin, atorvastatin patient is accepted at a tertiary care hospital, patient will be transferred (2) Hypothyroidism: ?Code(s): E03.9 - Hypothyroidism, unspecified ?Status:?Acute ?Assessment and Plan: Continue levothyroxine Time Spent with Patient Time attestation: Total time spent providing and/or coordinating transfer services: Exam Narrative: General: Pleasant elderly female in no acute distress HEENT:? Pupils equal and reactive, sclerae is clear, dry oral mucosa Neck:? Supple Respiratory:? Clear to auscultation bilateral, no wheezing, adequate air entry. Cardiac:? Regular rate and rhythm, S1-S2 was normal, no murmurs appreciated Abdomen:? Soft, nontender, nondistended, hypoactive bowel sounds Extremities:? Palpable pedal pulses, no edema, right groin site no hematoma, Neuro:? Patient is awake, alert, oriented, able to answer all questions and follows simple commands in all extremities Skin:? Warm and dry Psych:? Normal affect and mentation
== END 2023-09-25 19:30 | disposition short-term general hospital (02) | DRG 272 ==
LOC: ANHED 21:47 → ANHIMU 22:24 → ANHICU 09-26 15:50 → ANHIMU 09-26 15:50
PROVIDERS: Internal Medicine; Internal Medicine Cardiovascular Disease; Specialist; Student in an Organized Health Care Education/Training Program; Admitting Provider Internal Medicine; Emergency Provider Emergency Medicine; PCP Family Medicine; Visit Provider Hospitalist
PROC: 4A023N7 Measurement of Cardiac Sampling and Pressure, Left Heart, Percutaneous Approach (ICD-10-PCS; CPT 93452; principal; 2023-09-25 11:30)
PROC: 5A02210 Assistance with Cardiac Output using Balloon Pump, Continuous (ICD-10-PCS; 2023-09-25 11:30)
DX: I21.4 Non-ST elevation (NSTEMI) myocardial infarction (principal); I25.10 Atherosclerotic heart disease of native coronary artery without angina pectoris; E03.9 Hypothyroidism, unspecified
CPT/HCPCS: 33967; 36415; 70450; 71046; 80053; 80061; 83690; 84484; 85025; 85610; 85730; 93005; 93306; 93458; 96365; 96366; 99285; A9270; C1887; C1894; G0378; J0583; J1644; J2250; J3010; J7030; J7040

== ENCOUNTER 2024-03-11 14:01 | Emergency (ER) | payer MEDICARE, SELFPAY ==
[2024-03-11 14:15] VITALS: BP 152/40; PULSE 67; RESP 17; TEMP 36.2; O2SAT 100
--- NOTE | 2024-03-11 14:28 | ED.EAR ---
HPI - Ear Problem General Chief complaint: Ear Stated complaint: Right Ear Irritation Time Seen by Provider: 03/11/24 14:29 Source: patient, RN notes reviewed and old records reviewed Mode of arrival: ambulatory Limitations: no limitations History of Present Illness HPI Narrative: 83-year-old female presents to the [facility] with concerns of a piece of Q-tip, cotton and stuck in the right ear. States that she was using Q-tips in her right ear this morning. When she noticed that there was no cotton left at the end of it. Related Data Home Medications Medication Instructions Recorded Confirmed levothyroxine 25 mcg tablet 25 mcg PO QAM 09/24/23 03/11/24 aspirin 81 mg tablet,delayed 81 mg PO DAILY 11/07/23 03/11/24 release multivitamin 1 tablet PO DAILY 02/09/24 03/11/24 Allergies Allergy/AdvReac Type Severity Reaction Status Date / Time No Known Allergies Allergy Verified 02/09/24 12:53 Review of Systems Review of Systems: All systems reviewed & are unremarkable except as noted in HPI and below Constitutional: Constitutional: Reports no additional constitutional complaints Eyes: Eyes: Reports no additional eye complaints Cardiovascular: Cardiovascular: Reports no additional cardiovascular complaints, Denies chest pain and Denies dyspnea Respiratory: Respiratory: Reports no additional respiratory complaints, Denies chest congestion, Denies cough and Denies dyspnea Gastrointestinal: Gastrointestinal: Reports no additional gastrointestinal complaints, Denies abdominal pain, Denies nausea and Denies vomiting Musculoskeletal: Musculoskeletal: Reports no additional musculoskeletal complaints Integumentary/Breasts: Skin/Breast: Reports system reviewed and no additional complaints, except as docu Neurologic: Reports system reviewed and no additional complaints, except as documented Psychiatric: Psychiatric: Reports no additional psychiatric complaints Allergic/Immunologic: Allergic/Immunologic: Reports no additional allergic/immunologic complaints [facility] Family History Family History Father Lung cancer Mother Cerebrovascular accident Sibling Coronary artery disease Social History Social History Smoking status: Never smoker Second hand tobacco smoke exposure: Yes Alcohol intake: never Substance use: never Do You Feel Safe in your Home?: Yes Lack of Transportation: No Lack of Food: Never True Current Housing: I Have Housing Concerned About Future Housing: No Difficulty Paying Gas/Electric Bills: No Difficulty Paying for Meds: No Currently Unemployed: No Education: High School Diploma/GED Difficulty w/ Childcare or Family Care: No Spiritual care concerns: No Comments At the time of my signature, I reviewed and agree with the nursing past medical, surgical, social, and family history. There is no relevant family history pertinent to the patient complaint. Exam Const: General: cooperative, healthy appearing, comfortable, no acute distress, well developed, alert and well nourished Nutritional Appearance: well nourished Orientation/consciousness: patient oriented x3 Limitations: no limitations HENMT: Head: normal to inspection Ears: hearing grossly normal bilaterally, external ears normal, mastoids normal, no periauricular adenopathy, Abnormal EAC present excessive cerumen; no erythema, no edema, no EA tenderness and no foreign body and unable to visualize TM on the right Face/Nose/Sinus: Normal external nose present, Normal nares present, Normal nasal mucous membranes and turbinates present, normal facial exam and face symmetric Face and sinus: normal facial exam and face symmetric Mouth: Yes Normal oral and palatal mucosa present, Yes lip normal and Yes moist mucous membranes Throat: posterior oropharynx normal and uvula midline Eyes: General: appearance normal, b
== END 2024-03-11 14:58 | disposition home or self-care (01) ==
PROVIDERS: Emergency Provider Nurse Practitioner; PCP Family Medicine
DX: H61.21 Impacted cerumen, right ear (principal); H92.01 Otalgia, right ear; Z79.82 Long term (current) use of aspirin; E78.00 Pure hypercholesterolemia, unspecified; I10 Essential (primary) hypertension; I25.2 Old myocardial infarction; Z95.5 Presence of coronary angioplasty implant and graft; M85.80 Other specified disorders of bone density and structure, unspecified site; M81.0 Age-related osteoporosis without current pathological fracture; E03.9 Hypothyroidism, unspecified; Z85.3 Personal history of malignant neoplasm of breast; Z98.42 Cataract extraction status, left eye; Z98.41 Cataract extraction status, right eye; G62.9 Polyneuropathy, unspecified
CPT/HCPCS: 69210; 99213; G0463